=== PATIENT | male | born 1975 | race Caucasian/White ===

== ENCOUNTER → 2020-10-31 | Outpatient (CLI) | payer BC ==
--- NOTE | 2020-10-31 10:54 | FL ---
ESOPHOGRAM. HISTORY: Dysphagia Esophagram was performed per the air contrast technique. The patient swallowed barium and effervesce nt crystals without difficulty or delay. Esophageal peristalsis and motility appear to be within normal limits. There is no evidence for filling defect, mass or diverticulum. No hiatal hernia seen. Subsequently single contrast cervical esophagram was performed which fails demonstrate evidence for a spiration penetration or mass. There is posterior mass effect upon the cervical esophagus secondary t o spurring at the C6-7 level. IMPRESSION: There is posterior mass effect upon the cervical esophagus secondary to spurring at the C6-7 level. O therwise unremarkable study.
== END | disposition home or self-care (01) ==
LOC: RADUSWWP 09:42
PROVIDERS: ATTEND Otolaryngology
DX: K22.8 Other specified diseases of esophagus (principal)
CPT/HCPCS: 74220

== ENCOUNTER → 2023-06-22 | Outpatient (CLI) | payer BC ==
--- NOTE | 2023-06-22 21:10 | US ---
EXAMINATION TYPE: US extremity nonvasc mass RT DATE OF EXAM: 06/22/2023 COMPARISON: NONE CLINICAL INDICATION: Male, 47 years old with history of R22.40 LOCALIZED SWELLING, MASS AND LUMP, UNS PECIF; Pt states palpable lump right lateral/anterior lower leg x 1 year TECHNIQUE: Right lateral, lower leg FINDINGS: Solid, vascular lesion in area of pt's palpable lump= 2.6 x 1.2 x 3.2 cm/ small calcificat ions also visualized within IMPRESSION: 1. Solid vascular mass within the area of soft tissue palpable region of the calf. Consider additiona l workup with MRI with contrast.
== END | disposition home or self-care (01) ==
LOC: RADUSWWP 14:57
PROVIDERS: ATTEND Family Medicine
DX: R22.41 Localized swelling, mass and lump, right lower limb (principal)

== ENCOUNTER → 2023-07-02 | Outpatient (CLI) | payer BC ==
--- NOTE | 2023-07-07 09:12 | MR ---
EXAMINATION: MR tib fib RT wo/w con DATE OF EXAM: 07/02/2023 COMPARISON: Soft tissue ultrasound 06/22/2023 HISTORY: Vascular mass lateral side of right lower leg, abnormal US. TECHNIQUE: Multiplanar, multisequence images of the right tibia fibula were acquired without and with contrast. FINDINGS: BONES/MARROW: Normal bone marrow signal. SOFT TISSUES: Corresponding to the ultrasound findings within the right lower leg anterolateral subcu taneous fat, abutting the superficial myofascial plane of the anterior muscular compartment, there is a circumscribed 1.4 x 3.3 x 2.8 cm low T1/high T2 avidly enhancing solid mass. Myotendinous structures are normal. No anatomic variant. No bursal distention. No fluid collection. NEUROVASCULAR: Visualized neurovascular structures are normal. OTHER: Normal. No lymphadenopathy. IMPRESSION: Solid enhancing mass within the subcutaneous fat anterolateral right lower leg. Recommend biopsy. Dif ferential includes myxomatous tumors and sarcomatous tumors
== END | disposition home or self-care (01) ==
LOC: RADMRIMAIN 21:00
PROVIDERS: ATTEND Family Medicine
DX: R22.41 Localized swelling, mass and lump, right lower limb (principal)
CPT/HCPCS: 73720; A9585

== ENCOUNTER → 2023-11-22 | Day surgery (SDC) | payer BC ==
[2023-11-19 12:00] VITALS: BMI 25.7
[~2023-11-22] MED LIST: ACETAMINOPHEN TAB 325 MG TAB PO PRN; HYDROmorphone 0.5 MG/0.5 ML SYRINGE IVP PRN; KETAMINE HCL IN 0.9 % NACL 50 MG/5 ML SYRINGE ONE; KETOROLAC 15 MG/ML 1 ML VIAL IVP SCH; LIDOCAINE 1% INJ 10MG/ML (20 ML MDV) ONE; MIDAZOLAM 2 MG/2 ML VIAL ONE; NALOXONE 0.4 MG/ML 1 ML VIAL IV PRN; PROPOFOL 10 MG/ML 20 ML VIAL IV ONE; Pre Op ABX Message 1 EACH MISC MISCELLANE ONE; ceFAZolin 1 GM/50 ML BAG (PMX) ONE; fentaNYL (PF) 50 MCG/ML 2 ML AMP ONE
[2023-11-22] MEDS: ACETAMINOPHEN TAB 500 MG TAB PO PRN (08:05)
[2023-11-22] MEDS: ONDANSETRON 4 MG/2 ML VIAL IVP ONE (08:10)
[2023-11-22] MEDS: DEXAMETHASONE SOD PHOSPHATE 4 MG/ML 1 ML VIAL IV ONE (08:10)
[2023-11-22] MEDS: HEPARIN SODIUM,PORCINE 5,000 UNIT/ML 1 ML VIAL SQ PRN (08:11)
[2023-11-22] MEDS: LACTATED RINGERS 1,000 ML IV SCH (08:14)
[2023-11-22 08:30] VITALS: RESP 16; TEMP 97.9
--- NOTE | 2023-11-22 08:42 | P.GSHP ---
History of Present Illness H&P Date: 11/22/23 Chief Complaint: Right leg mass 48-year-old male here today for lesion removal right lateral platt. Growing in size over the last 5 years. Recent imaging shows it to be about 3 x 2 cm. Mild soreness. Past Medical History Past Medical History: Hypertension Additional Past Medical History / Comment(s): Chron's. History of Any Multi-Drug Resistant Organisms: None Reported Additional Past Surgical History / Comment(s): Colonoscopies. Past Anesthesia/Blood Transfusion Reactions: No Reported Reaction Smoking Status: Never smoker - Past Family History Father Family Medical History: No Reported History Medications and Allergies Home Medications Medication Instructions Recorded Confirmed Type Adalimumab [Humira(Cf) Pen] 40 mg SQ Q14D 11/19/23 11/19/23 History amLODIPine BESYLATE/BENAZEPRIL 1 cap PO QAM 11/19/23 11/19/23 History [amLODIPine BESYLATE/BENAZEPRIL 5-20 mg] Allergies Allergy/AdvReac Type Severity Reaction Status Date / Time No Known Allergies Allergy Verified 11/22/23 07:49 Surgical - Exam Vital Signs Temp Pulse Resp BP Pulse Ox 97.9 F 69 16 146/91 95 11/22/23 07:49 11/22/23 07:49 11/22/23 07:49 11/22/23 07:49 11/22/23 07:49 Physical exam: General: Well-developed, well-nourished HEENT: Normocephalic, sclerae nonicteric Abdomen: Nontender, nondistended Extremities: No edema, right lower lateral leg mass 3 x 2 cm Neuro: Alert and oriented Assessment and Plan (1) Mass of right lower leg Narrative/Plan: Will proceed with surgical excision at this time. Current Visit: Yes Status: Acute Code(s): R22.41 - LOCALIZED SWELLING, MASS AND LUMP, RIGHT LOWER LIMB SNOMED Code(s): 108221557
[2023-11-22] MEDS: LIDOCAINE 1%-EPI 1:100,000 20 ML VIAL SQ ONE ×3 (09:07→09:14)
[2023-11-22] MEDS: SODIUM CHLORIDE 0.9% 50 ML with ceFAZolin 2,000 MG IV ONE (09:15)
--- NOTE | 2023-11-22 09:44 | P.OP ---
Date of Procedure: 11/22/23 Procedure(s) Performed: PREOPERATIVE DIAGNOSIS: Right leg mass POSTOPERATIVE DIAGNOSIS: Same PROCEDURE: Excision right leg mass with intermediate closure SURGEON: Magdalena EBL: 5 cc ANESTHESIA: Sedation and local COMPLICATIONS: None OPERATIVE PROCEDURE: Patient kept supine for the procedure. Right lateral lower leg prepped and draped sterilely. Longitudinal incision made overlying the palpable mass after localizing with lidocaine. Subcutaneous tissue superficially divided using electrocautery. Underlying palpable mass superior to the fascia was then fully excised using both blunt dissection and cautery. This measured 3.2 x 2.2 cm. This had a smooth border. No extensions from the mass were seen. This was sent to pathology. Subcutaneous tissue was closed using interrupted 3-0 Vicryl sutures. Skin closed using a running 4-0 Monocryl subcuticular stitch. Length of intermediate closure 4 cm. Skin glue and sterile dressings applied. DISPOSITION: Stable to recovery room
[2023-11-22 10:03] VITALS: BP 128/82; PULSE 65
== END ==
LOC: OR 07:21
PROVIDERS: ATTEND Surgery
DX: R22.41 Localized swelling, mass and lump, right lower limb (principal); I10 Essential (primary) hypertension; Z79.899 Other long term (current) drug therapy
CPT/HCPCS: 27632; 88305; 88342; 88341; J2250; J1644; J1100; J2405; J0690 ×2; J2001; J3010; J2704

== ENCOUNTER 2024-04-04 06:30 | Inpatient (IN) | payer BC ==
--- NOTE | 2024-04-04 06:59 | ED ---
Abdominal Pain HPI - General Chief Complaint: Abdominal Pain Stated Complaint: Fever,Chills, ND Time Seen by Provider: 04/04/24 06:37 Source: patient, RN notes reviewed Mode of arrival: ambulatory Limitations: no limitations - History of Present Illness Initial Comments: This is a 48-year-old male who presents to the emergency department for abdominal pain, nausea, vomiting, and diarrhea. Symptoms started 2 days ago. States that the diarrhea is essentially constant. He has already gone over 10 times since being awake for a couple of hours. He has had a couple episodes of vomiting, but largely feels nauseous due to abdominal discomfort and diarrhea. He has pain largely in his lower abdomen. Reports a history of Crohn's disease, but states that that does not cause him pain whenever he develops flareups and that involves blood in his stool. States that this does not feel like a flareup and he does not have any blood in his stool at this time. Currently on Humira for Crohn's disease management. Reports associated fevers and chills as well. Denies any sick contacts or new medications. MD Complaint: abdominal pain - Related Data Home Medications Medication Instructions Recorded Confirmed amLODIPine BESYLATE/BENAZEPRIL 1 cap PO DAILY 11/19/23 04/04/24 [amLODIPine BESYLATE/BENAZEPRIL 5-20 mg] Omeprazole Magnesium [PriLOSEC OTC] 20 mg PO DAILY 04/04/24 04/04/24 Allergies Allergy/AdvReac Type Severity Reaction Status Date / Time No Known Allergies Allergy Verified 04/04/24 12:18 Review of Systems ROS Statement: Those systems with pertinent positive or pertinent negative responses have been documented in the HPI. ROS Other: All systems not noted in ROS Statement are negative. Past Medical History Past Medical History: Hypertension Additional Past Medical History / Comment(s): Chron's. History of Any Multi-Drug Resistant Organisms: None Reported Additional Past Surgical History / Comment(s): Colonoscopies. Past Anesthesia/Blood Transfusion Reactions: No Reported Reaction Past Psychological History: No Psychological Hx Reported Smoking Status: Never smoker - Past Family History Father Family Medical History: No Reported History General Exam Limitations: no limitations General appearance: alert, in no apparent distress Head exam: Present: atraumatic, normocephalic, normal inspection Respiratory exam: Present: normal lung sounds bilaterally. Absent: respiratory distress, wheezes, rales, rhonchi, stridor Cardiovascular Exam: Present: regular rate, normal rhythm, normal heart sounds. Absent: systolic murmur, diastolic murmur, rubs, gallop, clicks GI/Abdominal exam: Present: soft, tenderness (diffuse), normal bowel sounds. A bsent: distended Neurological exam: Present: alert, oriented X3, CN II-XII intact Psychiatric exam: Present: normal affect, normal mood Skin exam: Present: warm, dry, intact, normal color. Absent: rash Course Vital Signs 04/04/24 04/04/24 04/04/24 06:31 08:10 09:00 Temperature 98.7 F 98 F Pulse Rate 105 H 85 88 Respiratory 20 18 16 Rate Blood Pressure 126/82 138/83 131/94 O2 Sat by Pulse 99 98 94 L Oximetry 04/04/24 11:28 Temperature Pulse Rate 102 H Respiratory 18 Rate Blood Pressure 137/92 O2 Sat by Pulse 95 Oximetry Medical Decision Making - Medical Decision Making This is a 48-year-old male who presents to the emergency department for abdominal pain and diarrhea. Was pt. sent in by a medical professional or institution? @ -No Did you speak to anyone other than the patient for history? @ -No Did you review nursing and triage notes? @ -Yes, and I agree, it is accurate with regards to the patient's symptoms. Were old charts reviewed? @ -No Differential Diagnosis? @ -Differential Abdominal Pain Men: Appendicitis, cholecystitis, diverticulosis, ischemic bowel, pancreatitis, hepatitis, UTI, gastroenteritis, AAA, incarcerated hernia, bowel obstruction, constipation, inflammatory bowel, hepatitis, peptic ulcer disease, splenic infarction, perforated viscus, testicular torsion, this is not meant to be an all-inclusive list EKG interpreted by me (3pts min.)? @ -EKG interpreted by me demonstrating the following: Sinus rhythm. Ventricular rate 86 bpm, NJ interval 124 ms, QRS duration 100 ms, QTc 413 ms. X-rays interpreted by me (1pt min.)? @ -Not obtained CT interpreted by me (1pt min.)? @ -CT scan of the abdomen and pelvis obtained. My interpretation identifies bowel wall thickening around the cecum. U/S interpreted by me (1pt. min.)? @ -Not obtained What testing was considered but not performed? (CT, X-rays, U/S, labs)? Why? @ -None What meds were considered but not given? Why? @ -None Did you discuss the management of the patient with other professionals? @ -Yes, Dr. Wade, who accepts the patient for admission Did you reconcile home meds? @ -Yes Was smoking cessation discussed for >3mins.? @ -No Was critical care preformed (if so, how long)? @ -No Were there social determinants of health that impacted care today? How? (Homelessness, low income, unemployed, alcoholism, drug addiction, transportation, low edu. Level, literacy, decrease access to med. care, residential, rehab)? @ -No Was there de-escalation of care discussed even if they declined? (Discuss DNR or withdrawal of care, Hospice)? @ -No What co-morbidities impacted this encounter? (DM, HTN, Smoking, COPD, CAD, Cancer, CVA, Hep., AIDS, mental health diagnosis, sleep apnea, morbid obesity)? @ -Crohn's disease Was patient admitted / discharged? @ -Admitted. Lab work demonstrates signs of dehydration with a creatinine of 1.78 and eGFR of 45. He also has an elevation in metamyelocytes. Lab work was otherwise unremarkable. COVID, influenza, and RSV testing negative. He was given a total of 2 L of IV fluids due to the fairly prominent dehydration. Morphine administered for discomfort with improvement in symptoms. CT scan of the abdomen and pelvis obtained demonstrating nonspecific infectious or inflammatory colitis with moderate to severe inflammation consistent with UC or Crohn's disease. No abscess or free air was identified. Findings concerning for Crohn's colitis flareup. Discussed with the patient the options of admission versus discharge home. Patient was still relatively uncomfortable and given the level of his dehydration, opted to stay for further management. Patient started on Solu-Medrol 30 mg twice daily for Crohn's colitis flareup. Maintenance IV fluids initiated as well. Consult placed for GI. Case discussed with ED attending, Dr. Moore. Undiagnosed new problem with uncertain prognosis? @ -None Drug Therapy requiring intensive monitoring for toxicity (Heparin, Nitro, Insulin, Cardizem)? @ -None Were any procedures done? @ -None Diagnosis/symptom? @ -Crohn's colitis flareup Acute, or Chronic, or Acute on Chronic? @ -Acute on chronic Uncomplicated (without systemic symptoms) or Complicated (systemic symptoms)? @ -Complicated Side effects of treatment? @ -None Exacerbation, Progression, or Severe Exacerbation] @ -Severe exacerbation Poses a threat to life or bodily function? @ -Yes, can lead to complications such as bowel obstruction or perforation, which can become life-threatening. - Lab Data Result diagrams: 04/04/24 07:03 04/04/24 07:03 Lab Results 04/04/24 04/04/24 04/04/24 Range/Units 07:03 07:03 07:03 WBC 7.7 (3.8-10.6) k/uL RBC 4.95 (4.30-5.90) m/uL Hgb 15.5 (13.0-17.5) gm/dL Hct 44.7 (39.0-53.0) % MCV 90.2 (80.0-100.0) fL MCH 31.3 (25.0-35.0) pg MCHC 34.7 (31.0-37.0) g/dL RDW 12.5 (11.5-15.5) % Plt Count 196 (150-450) k/uL MPV 7.8 Neutrophils % (Manual) 79 % Band Neuts % (Manual) 10 % Lymphocytes % (Manual) 5 % Monocytes % (Manual) 6 % Metamyelocytes % 2 % Neutrophils # (Manual) 6.80 (1.3-7.7) k/uL Lymphocytes # (Manual) 0.39 L (1.0-4.8) k/uL Monocytes # (Manual) 0.46 (0-1.0) k/uL Metamyelocytes # (Man) 0.15 H (0) k/uL Nucleated RBCs 0 (0-0) /100 WBC Manual Slide Review Performed Toxic Vacuolation Present RBC Morphology Normal ESR (0-15) mm/Hr Sodium 137 (137-145) mmol/L Potassium 3.5 (3.5-5.1) mmol/L Chloride 103 (98-107) mmol/L Carbon Dioxide 22 (22-30) mmol/L Anion Gap 12 mmol/L BUN 21 H (9-20) mg/dL Creatinine 1.78 H (0.66-1.25) mg/dL Est GFR (CKD-EPI)AfAm 52 (>60 ml/min/1.73 sqM) Est GFR (CKD-EPI)NonAf 45 (>60 ml/min/1.73 sqM) Glucose 110 H (74-99) mg/dL Plasma Lactic Acid Geraldo (0.7-2.0) mmol/L Calcium 9.1 (8.4-10.2) mg/dL Phosphorus 2.8 (2.5-4.5) mg/dL Magnesium 1.6 (1.6-2.3) mg/dL Total Bilirubin 1.1 (0.2-1.3) mg/dL AST 65 H (17-59) U/L ALT 90 H (4-49) U/L Alkaline Phosphatase 93 (38-126) U/L C-Reactive Protein (<1.0) mg/dL Total Protein 6.9 (6.3-8.2) g/dL Albumin 4.0 (3.5-5.0) g/dL Amylase 46 (30-110) U/L Lipase 78 (23-300) U/L Urine Color Yellow Urine Appearance Clear (Clear) Urine pH 6.0 (5.0-8.0) Ur Specific South Range 1.050 H (1.001-1.035) Urine Protein 1+ H (Negative) Urine Glucose (UA) Negative (Negative) Urine Ketones 1+ H (Negative) Urine Blood Large H (Negative) Urine Nitrite Negative (Negative) Urine Bilirubin Negative (Negative) Urine Urobilinogen <2.0 (<2.0) mg/dL Ur Leukocyte Esterase Negative (Negative) Urine RBC >182 H (0-5) /hpf Urine WBC 6 H (0-5) /hpf Ur Squamous Epith Cells 1 (0-4) /hpf Urine Bacteria Rare H (None) /hpf Urine Mucus Rare H (None) /hpf Urine Yeast (Budding) Few H (None) /hpf Influenza Type A (PCR) (Not Detectd) Influenza Type B (PCR) (Not Detectd) RSV (PCR) (Not Detectd) SARS-CoV-2 (PCR) (Not Detectd) 04/04/24 04/04/24 04/04/24 Range/Units 07:03 07:03 07:03 WBC (3.8-10.6) k/uL RBC (4.30-5.90) m/uL Hgb (13.0-17.5) gm/dL Hct (39.0-53.0) % MCV (80.0-100.0) fL MCH (25.0-35.0) pg MCHC (31.0-37.0) g/dL RDW (11.5-15.5) % Plt Count (150-450) k/uL MPV Neutrophils % (Manual) % Band Neuts % (Manual) % Lymphocytes % (Manual) % Monocytes % (Manual) % Metamyelocytes % % Neutrophils # (Manual) (1.3-7.7) k/uL Lymphocytes # (Manual) (1.0-4.8) k/uL Monocytes # (Manual) (0-1.0) k/uL Metamyelocytes # (Man) (0) k/uL Nucleated RBCs (0-0) /100 WBC Manual Slide Review Toxic Vacuolation RBC Morphology ESR 46 H (0-15) mm/Hr Sodium (137-145) mmol/L Potassium (3.5-5.1) mmol/L Chloride (98-107) mmol/L Carbon Dioxide (22-30) mmol/L Anion Gap mmol/L BUN (9-20) mg/dL Creatinine (0.66-1.25) mg/dL Est GFR (CKD-EPI)AfAm (>60 ml/min/1.73 sqM) Est GFR (CKD-EPI)NonAf (>60 ml/min/1.73 sqM) Glucose (74-99) mg/dL Plasma Lactic Acid Geraldo 1.9 (0.7-2.0) mmol/L Calcium (8.4-10.2) mg/dL Phosphorus (2.5-4.5) mg/dL Magnesium (1.6-2.3) mg/dL Total Bilirubin (0.2-1.3) mg/dL AST (17-59) U/L ALT (4-49) U/L Alkaline Phosphatase (38-126) U/L C-Reactive Protein (<1.0) mg/dL Total Protein (6.3-8.2) g/dL Albumin (3.5-5.0) g/dL Amylase (30-110) U/L Lipase (23-300) U/L Urine Color Urine Appearance (Clear) Urine pH (5.0-8.0) Ur Specific [place] Range (1.001-1.035) Urine Protein (Negative) Urine Glucose (UA) (Negative) Urine Ketones (Negative) Urine Blood (Negative) Urine Nitrite (Negative) Urine Bilirubin (Negative) Urine Urobilinogen (<2.0) mg/dL Ur Leukocyte Esterase (Negative) Urine RBC (0-5) /hpf Urine WBC (0-5) /hpf Ur Squamous Epith Cells (0-4) /hpf Urine Bacteria (None) /hpf Urine Mucus (None) /hpf Urine Yeast (Budding) (None) /hpf Influenza Type A (PCR) Not Detected (Not Detectd) Influenza Type B (PCR) Not Detected (Not Detectd) RSV (PCR) Not Detected (Not Detectd) SARS-CoV-2 (PCR) Not Detected (Not Detectd) 04/04/24 Range/Units 07:03 WBC (3.8-10.6) k/uL RBC (4.30-5.90) m/uL Hgb (13.0-17.5) gm/dL Hct (39.0-53.0) % MCV (80.0-100.0) fL MCH (25.0-35.0) pg MCHC (31.0-37.0) g/dL RDW (11.5-15.5) % Plt Count (150-450) k/uL MPV Neutrophils % (Manual) % Band Neuts % (Manual) % Lymphocytes % (Manual) % Monocytes % (Manual) % Metamyelocytes % % Neutrophils # (Manual) (1.3-7.7) k/uL Lymphocytes # (Manual) (1.0-4.8) k/uL Monocytes # (Manual) (0-1.0) k/uL Metamyelocytes # (Man) (0) k/uL Nucleated RBCs (0-0) /100 WBC Manual Slide Review Toxic Vacuolation RBC Morphology ESR (0-15) mm/Hr Sodium (137-145) mmol/L Potassium (3.5-5.1) mmol/L Chloride (98-107) mmol/L Carbon Dioxide (22-30) mmol/L Anion Gap mmol/L BUN (9-20) mg/dL Creatinine (0.66-1.25) mg/dL Est GFR (CKD-EPI)AfAm (>60 ml/min/1.73 sqM) Est GFR (CKD-EPI)NonAf (>60 ml/min/1.73 sqM) Glucose (74-99) mg/dL Plasma Lactic Acid Geraldo (0.7-2.0) mmol/L Calcium (8.4-10.2) mg/dL Phosphorus (2.5-4.5) mg/dL Magnesium (1.6-2.3) mg/dL Total Bilirubin (0.2-1.3) mg/dL AST (17-59) U/L ALT (4-49) U/L Alkaline Phosphatase (38-126) U/L C-Reactive Protein 25.6 H (<1.0) mg/dL Total Protein (6.3-8.2) g/dL Albumin (3.5-5.0) g/dL Amylase (30-110) U/L Lipase (23-300) U/L Urine Color Urine Appearance (Clear) Urine pH (5.0-8.0) Ur Specific [place] Range (1.001-1.035) Urine Protein (Negative) Urine Glucose (UA) (Negative) Urine Ketones (Negative) Urine Blood (Negative) Urine Nitrite (Negative) Urine Bilirubin (Negative) Urine Urobilinogen (<2.0) mg/dL Ur Leukocyte Esterase (Negative) Urine RBC (0-5) /hpf Urine WBC (0-5) /hpf Ur Squamous Epith Cells (0-4) /hpf Urine Bacteria (None) /hpf Urine Mucus (None) /hpf Urine Yeast (Budding) (None) /hpf Influenza Type A (PCR) (Not Detectd) Influenza Type B (PCR) (Not Detectd) RSV (PCR) (Not Detectd) SARS-CoV-2 (PCR) (Not Detectd) - Radiology Data Radiology results: report reviewed, image reviewed Disposition Clinical Impression: Exacerbation of Crohn's disease, Crohn's colitis, ANTONETTE (acute kidney injury) Disposition: ADMITTED IP TO THIS HOSP
[2024-04-04] MEDS: DIPHENOX-ATROP 2.5-0.025 MG 1 EACH TAB PO STA (07:12)
[2024-04-04] MEDS: MORPHINE SULFATE 4 MG/ML SYRINGE IVP STA (07:13)
[2024-04-04] MEDS: ONDANSETRON 4 MG/2 ML VIAL IVP STA (07:18)
[2024-04-04 07:21] LABS: HCT 44.7 % (39.0-53.0); HGB 15.5 gm/dL (13.0-17.5); MCH 31.3 pg (25.0-35.0); MCHC 34.7 g/dL (31.0-37.0); MCV 90.2 fL (80.0-100.0); Mean Platelet Volume 7.8; Platelet Count 196 k/uL (150-450); RBC 4.95 m/uL (4.30-5.90); RDW 12.5 % (11.5-15.5); WBC 7.7 k/uL (3.8-10.6)
[2024-04-04] MEDS: PANTOPRAZOLE 40 MG/10 ML VIAL IVP STA (07:21)
[2024-04-04] MEDS: SODIUM CHLORIDE 0.9% 1,000 ML IV STA ×2 (07:22→08:03)
[2024-04-04 07:30] LABS: ALT 90 U/L (4-49); AST 65 U/L (17-59); African American GFR (CKD) 52 (>60 ml/min/1.73 sqM); Alkaline Phosphatase 93 U/L (38-126); Amylase 46 U/L (30-110); Anion Gap 12 mmol/L; Blood Urea Nitrogen 21 mg/dL (9-20); Calcium 9.1 mg/dL (8.4-10.2); Carbon Dioxide 22 mmol/L (22-30); Chloride 103 mmol/L (98-107); Glucose 110 mg/dL (74-99); Lipase 78 U/L (23-300); Magnesium 1.6 mg/dL (1.6-2.3); Non-African American GFR(CKD) 45 (>60 ml/min/1.73 sqM); Phosphorus 2.8 mg/dL (2.5-4.5); Potassium 3.5 mmol/L (3.5-5.1); Sodium 137 mmol/L (137-145); Total Bilirubin 1.1 mg/dL (0.2-1.3); Total Protein 6.9 g/dL (6.3-8.2)
[2024-04-04 08:37] LABS: Band Neutrophils % 10 %; Lymphocytes # (M) 0.39 k/uL (1.0-4.8); Metamyelocytes # (M) 0.15 k/uL (0); Metamyelocytes % 2 %; Monocytes # (M) 0.46 k/uL (0-1.0); Neutrophils % (M) 79 %; Nucleated Red Blood Cells 0 /100 WBC (0-0); Total Cells Counted 200
[2024-04-04 08:38] LABS: RBC Morphology Normal
[2024-04-04 08:39] LABS: Toxic Vacuolation Present
--- NOTE | 2024-04-04 08:50 | CT ---
EXAMINATION TYPE: CT abdomen pelvis w con DATE OF EXAM: 04/04/2024 COMPARISON: None HISTORY: 48-year-old male Abdominal pain, acute, nonlocalized TECHNIQUE: Contiguous axial scanning of the abdomen and pelvis following administration of 100 ml Iso ella 300 IV contrast. Delayed images through the kidneys and coronal/sagittal reconstructions perform ed. CT DLP: 735.9 mGycm Automated exposure control for dose reduction was used. FINDINGS: Heart normal size with trace anterior pericardial fluid. There is some patchy densities in the lower lungs. No pleural effusion. Tiny 5 mm cyst posterior right liver lobe. Liver enlarged at 20.3 cm. There may be underlying fatty infiltration. Portal venous system is patent . No biliary ductal dilatation. Gallbladder, adrenal glands, kidneys, spleen, and pancreas within normal limits. Prominent fluid-filled small bowel loops within the right side of the abdomen, liquid stool scattered throughout the colon. No abnormal small bowel dilatation. There is a nondilated appendix in the right lower quadrant. Some prominent right lower quadrant mesen teric lymph nodes measuring up to 8 mm and are probably reactive. There is moderate to severe circumferential wall thickening along the cecum and ascending colon and m ild to moderate along the transverse colon. Additional moderate edematous wall thickening and inflammation involving 40 cm span of the terminal i leum. There is moderate surrounding inflammation and some mild reactive fluid along the right paracol ic gutter. No abscess formation or free air. There is proximal sigmoid diverticulosis. No convincing findings of acute diverticulitis. Prominent p ericolonic vessels are seen. Bladder partially distended. Prostate gland is borderline enlarged at 4.1 cm. Pelvic phleboliths. No abnormal fluid collection in the pelvis or pelvic lymphadenopathy. Bones: Moderate degenerative disc disease L4-L5. Mild degenerative disc disease lower thoracic spine. Facet arthropathy lower lumbar spine. IMPRESSION: 1. Nonspecific infectious or inflammatory colitis particularly centered along the cecum, ascending co kelli, and to a lesser degree transverse colon. Moderate to severe inflammation. Contiguous terminal il eitis (also with moderate to severe inflammation). Consider inflammatory bowel disease such as UC or Crohn's disease. No abscess or free air. 2. Reactive mild free fluid tracking along the right paracolic gutter. 3. Hepatomegaly at 20.3 cm. There may be some mild hepatic steatosis. 4. Some mild patchy densities of the lower lungs probably areas of dependent atelectasis. If any acti ve respiratory signs/symptoms, follow-up radiograph.
[2024-04-04] MEDS ORDERED: ACETAMINOPHEN TAB 325 MG TAB PO PRN (09:33)
[2024-04-04] MEDS ORDERED: NALOXONE 0.4 MG/ML 1 ML VIAL IV PRN (09:33)
[2024-04-04 09:54] LABS: Appearance,Urine Clear (Clear); Bacteria,Urine Rare /hpf; Bilirubin,Urine Negative (Negative); Blood,Urine Large (Negative); Budding Yeast,Urine Few /hpf; Color,Urine Yellow; Glucose,Urine (UA) Negative (Negative); Ketones,Urine 1+ (Negative); Leukocyte Esterase,Urine Negative (Negative); Mucus,Urine Rare /hpf; Nitrite,Urine Negative (Negative); Protein,Urine 1+ (Negative); RBC,Urine >182 /hpf (0-5); Squamous Epithelial Cell,Urine 1 /hpf (0-4); Urobilinogen,Urine <2.0 mg/dL (<2.0); WBC,Urine 6 /hpf (0-5)
[2024-04-04] MEDS: methylPREDNISolone SOD SUCCI 40 MG/ML 1 ML VIAL IV SCH ×2 (09:57→15:00)
[2024-04-04] MEDS: SODIUM CHLORIDE 0.9% 1,000 ML IV SCH (09:58)
[2024-04-04 11:51] LABS: Glucose,Whole Blood 100 mg/dL (70-110)
[2024-04-04] MEDS: KETOROLAC 15 MG/ML 1 ML VIAL IVP PRN (12:34)
--- NOTE | 2024-04-04 13:24 | P.CONS ---
History of Present Illness - Reason for Consult Consult date: 04/04/24 Crohn's flareup Requesting physician: Estela Panda - Chief Complaint Abdominal pain, diarrhea - History of Present Illness This a pleasant 48-year-old male who presented to the emergency department with complaints of diarrhea and abdominal pain for last 2 to 3 days duration associated with nausea. He has a past medical history including Crohn's disease diagnosed at about 20 years old and follows with gastroenterology from [place] [employer] administrative [employer]. He is currently on Humira. He cannot remember the last time he has had a flareup. States that his Crohn's affects the large intestine with ulcers. He states that he was having diarrhea up to 20 times or more a day nonbloody. States that he had diarrhea 8 times today from 3:00 till about 7:00 AM. He was given Lomotil and he has not had any bowel movement since then. States he is having lower abdominal pain, associated with nausea but no vomiting. He did state that he was having fever Wednesday and Wednesday with a max temp of 101 at home. Denies any sick contacts. He is afebrile here in the hospital. C. difficile ordered however patient has not been able to have a bowel movement since given Lomotil. Labs overall unremarkable, mild elevation in AST and ALT at 65 and 90 respectively. Reports last colonoscopy within the last 3 to 4 months she states was normal with no active disease. Review of Systems REVIEW OF SYSTEMS: CARDIOPULMONARY: No chest pain or shortness of breath. Gastrointestinal: Abdominal pain. No nausea or vomiting. No hematemesis, coffee-ground emesis. Frequent diarrhea. No rectal bleeding, or melena. GENITOURINARY: No dysuria or hematuria. MUSCULOSKELETAL: Reports normal range of motion. SKIN: No rashes. No jaundice. ENDOCRINE: No chills, fevers. No excessive weight gain or loss. No polydipsia or polyuria. PSYCHIATRIC: Unremarkable. NEUROLOGY: No change in mental status. Denies dizziness, headache. ENT: Vision unremarkable. CONSTITUTIONAL: No recent weight loss. Fever chills and bodyaches. Past Medical History Past Medical History: GERD/Reflux, Hypertension Additional Past Medical History / Comment(s): Chron's diagnosed at 20 History of Any Multi-Drug Resistant Organisms: None Reported Additional Past Surgical History / Comment(s): Colonoscopies, fatty tumor removal Past Anesthesia/Blood Transfusion Reactions: No Reported Reaction Smoking Status: Never smoker - Past Family History Father Family Medical History: No Reported History Medications and Allergies Home Medications Medication Instructions Recorded Confirmed Type amLODIPine BESYLATE/BENAZEPRIL 1 cap PO DAILY 11/19/23 04/04/24 History [amLODIPine BESYLATE/BENAZEPRIL 5-20 mg] Omeprazole Magnesium [PriLOSEC OTC] 20 mg PO DAILY 04/04/24 04/04/24 History Allergies Allergy/AdvReac Type Severity Reaction Status Date / Time No Known Allergies Allergy Verified 04/04/24 12:18 Physical Exam Vitals: Vital Signs Temp Pulse Resp BP Pulse Ox 04/04/24 11:28 102 H 18 137/92 95 04/04/24 09:00 88 16 131/94 94 L 04/04/24 08:10 98 F 85 18 138/83 98 04/04/24 06:31 98.7 F 105 H 20 126/82 99 Intake and Output 04/03/24 04/04/24 04/04/24 22:59 06:59 14:59 Other: Weight 81.647 kg 81.647 kg General appearance: The patient is alert, oriented, appears in no acute distress. HET: Head is normocephalic and atraumatic. Conjunctiva pink. Sclera anicteric. Neck: Supple without lymphadenopathy. Trachea midline. Heart: Regular. Lungs: Equal expansion, normal respiratory effort. Abdomen: Soft, lower abdominal tenderness, nondistended. Skin: No rashes. No jaundice. Extremities: Normal skin color and turgor. No pedal edema. Neurological: No focal deficits. Alert and oriented x3. Results CBC & Chem 7: 04/04/24 07:03 04/04/24 07:03 Labs: Abnormal Lab Results - Last 24 Hours (Table) 04/04/24 04/04/24 04/04/24 Range/Units 07:03 07:03 07:03 Lymphocytes # (Manual) 0.39 L (1.0-4.8) k/uL Metamyelocytes # (Man) 0.15 H (0) k/uL BUN 21 H (9-20) mg/dL Creatinine 1.78 H (0.66-1.25) mg/dL Glucose 110 H (74-99) mg/dL AST 65 H (17-59) U/L ALT 90 H (4-49) U/L C-Reactive Protein (<1.0) mg/dL Ur Specific [place] 1.050 H (1.001-1.035) Urine Protein 1+ H (Negative) Urine Ketones 1+ H (Negative) Urine Blood Large H (Negative) Urine RBC >182 H (0-5) /hpf Urine WBC 6 H (0-5) /hpf Urine Bacteria Rare H (None) /hpf Urine Mucus Rare H (None) /hpf Urine Yeast (Budding) Few H (None) /hpf 04/04/24 Range/Units 07:03 Lymphocytes # (Manual) (1.0-4.8) k/uL Metamyelocytes # (Man) (0) k/uL BUN (9-20) mg/dL Creatinine (0.66-1.25) mg/dL Glucose (74-99) mg/dL AST (17-59) U/L ALT (4-49) U/L C-Reactive Protein 25.6 H (<1.0) mg/dL Ur Specific [place] (1.001-1.035) Urine Protein (Negative) Urine Ketones (Negative) Urine Blood (Negative) Urine RBC (0-5) /hpf Urine WBC (0-5) /hpf Urine Bacteria (None) /hpf Urine Mucus (None) /hpf Urine Yeast (Budding) (None) /hpf Comments: CT abdomen pelvis reports nonspecific infectious or inflammatory colitis part to the ocularly centered along the cecum, ascending colon and to a lesser degree transverse colon. Moderate to severe inflammation. Contagious terminal ileitis also with moderate to severe inflammation. Consider inflammatory bowel disease such as UC or Crohn's disease. No abscess or free air. Reactive mild free fluid tracking along the right paracolic gutter. Hepatomegaly at 20.3. There may be some mild hepatic steatosis. Some mild patchy densities of the lower lungs probably areas of dependent atelectasis if any active respiratory signs symptoms follow-up radiograph. Assessment and Plan (1) Crohn's disease Narrative/Plan: 48-year-old with longstanding history of controlled Crohn's disease on Humira presenting with abdominal pain nausea and frequent nonbloody diarrhea. CT abdomen pelvis shows nonspecific colitis with moderate to severe inflammation. Patient states it does not feel like a normal flareup like she has had in the past that usually symptomatic with bloody diarrhea. He states that he is not having any blood per rectum frequent diarrhea up to 20 times. Unclear if this is more of an infectious etiology or exacerbation. CRP and sed rate were obtained CRP is elevated at 25 sed rate currently pending. Unfortunately patient was given Lomotil, waiting patient to pass stool for C. difficile and stool cultures. Until then we will treat with IV antibiotics and steroids. Current Visit: Yes Status: Acute Code(s): K50.90 - CROHN'S DISEASE, UNSPECIFIED, WITHOUT COMPLICATIONS SNOMED Code(s): 40475566 (2) Diarrhea Current Visit: Yes Status: Acute Code(s): R19.7 - DIARRHEA, UNSPECIFIED SNOMED Code(s): 52457500 (3) Abdominal pain Current Visit: Yes Status: Acute Code(s): R10.9 - UNSPECIFIED ABDOMINAL PAIN SNOMED Code(s): 79006666 Plan: 1. Continue symptomatic and supportive care 2. Will discontinue IV steroids for now 3. Start Zosyn IV every 8 hours 3. Protonix 40 mg daily for GI prophylaxis 5. C. difficile and stool cultures ordered 6. CRP and sed rate ordered 7. Clear liquid diet 8. Further recommendations forthcoming based on clinical course 9. Hold antidiarrheals Thank you for this consultation, we will continue to follow Dr. Zulay Gonzalez I agree with the dictator's note, documented as a scribe by Rosalinda Bustillo.
[2024-04-04] MEDS: PIPERACILLIN-TAZOBACTAM 3.375 GM in SODIUM CHLORIDE 0.9% 100 ML IVPB SCH (14:57)
[2024-04-04] MEDS: MORPHINE SULFATE 4 MG/ML SYRINGE IV PRN (17:37)
[2024-04-05] MEDS: PANTOPRAZOLE 40 MG/10 ML VIAL IV SCH (08:21)
[2024-04-05] MEDS: amLODIPine 5 MG TAB PO SCH (08:22)
[2024-04-05] MEDS: ONDANSETRON 4 MG/2 ML VIAL IVP PRN (08:22)
[2024-04-05] MEDS: lisinopriL 20 MG TAB PO SCH (08:22)
--- NOTE | 2024-04-05 08:35 | P.HPIM ---
History of Present Illness H&P Date: 04/05/24 Chief Complaint: Abdominal pain This is a 48-year-old white male with known history of hypertension and Crohn's colitis who came in with significant abdominal pain and diarrhea over the last 3 to 4 days. No abnormal dietary intake. CT scan shows colitis. Appropriate consultations have been done he is kept comfortable with antidiarrheal and morphine. History of fever and chills. Review of Systems Constitutional: Denies chills, Denies fever Eyes: denies blurred vision, denies pain Ears, nose, mouth and throat: Denies headache, Denies sore throat Cardiovascular: Denies chest pain, Denies shortness of breath Respiratory: Reports as per HPI Gastrointestinal: Reports as per HPI, Reports abdominal pain, Reports diarrhea Past Medical History Past Medical History: Hypertension Additional Past Medical History / Comment(s): Chron's. History of Any Multi-Drug Resistant Organisms: None Reported Additional Past Surgical History / Comment(s): Colonoscopies. Past Anesthesia/Blood Transfusion Reactions: No Reported Reaction Past Psychological History: No Psychological Hx Reported Smoking Status: Never smoker - Past Family History Father Family Medical History: No Reported History Medications and Allergies Home Medications Medication Instructions Recorded Confirmed Type amLODIPine BESYLATE/BENAZEPRIL 1 cap PO DAILY 11/19/23 04/04/24 History [amLODIPine BESYLATE/BENAZEPRIL 5-20 mg] Omeprazole Magnesium [PriLOSEC OTC] 20 mg PO DAILY 04/04/24 04/04/24 History Allergies Allergy/AdvReac Type Severity Reaction Status Date / Time No Known Allergies Allergy Verified 04/04/24 12:18 Physical Exam Vitals: Vital Signs Temp Pulse Pulse Resp BP BP Pulse Ox 04/05/24 08:20 98.6 F 72 17 154/97 95 04/05/24 00:40 98.9 F 68 16 126/86 96 04/04/24 19:19 99.0 F 87 19 141/80 98 04/04/24 15:00 99.4 F 80 17 125/71 95 04/04/24 11:28 102 H 18 137/92 95 04/04/24 09:00 88 16 131/94 94 L Intake and Output 04/04/24 04/05/24 04/05/24 22:59 06:59 14:59 Intake Total 600 Balance 600 Intake: Intake, IV Titration 600 Amount Piperacillin-Tazobactam 3 100 .375 gm In Sodium Chloride 0.9% 100 ml @ 25 mls/hr IVPB Q8HR [facility] Rx# :[id number] Sodium Chloride 0.9% 1, 500 000 ml @ 100 mls/hr IV . Q10H [facility] Rx#:[id number] Other: # Voids 4 # Bowel Movements 2 - Constitutional General appearance: no acute distress - EENT Eyes: EOMI - Neck Neck: no lymphadenopathy - Respiratory Respiratory: bilateral: diminished - Cardiovascular Rhythm: regular Heart sounds: normal: S1, S2 - Gastrointestinal General gastrointestinal: hyperactive bowel sounds, tenderness - Integumentary Integumentary: no cellulitis - Psychiatric Psychiatric: A&O x's 3 Results CBC & Chem 7: 04/04/24 07:03 04/04/24 07:03 Labs: Abnormal Lab Results - Last 24 Hours (Table) 04/04/24 04/04/24 04/04/24 Range/Units 07:03 07:03 07:03 Lymphocytes # (Manual) 0.39 L (1.0-4.8) k/uL Metamyelocytes # (Man) 0.15 H (0) k/uL ESR 46 H (0-15) mm/Hr C-Reactive Protein (<1.0) mg/dL Ur Specific [place] 1.050 H (1.001-1.035) Urine Protein 1+ H (Negative) Urine Ketones 1+ H (Negative) Urine Blood Large H (Negative) Urine RBC >182 H (0-5) /hpf Urine WBC 6 H (0-5) /hpf Urine Bacteria Rare H (None) /hpf Urine Mucus Rare H (None) /hpf Urine Yeast (Budding) Few H (None) /hpf 04/04/24 Range/Units 07:03 Lymphocytes # (Manual) (1.0-4.8) k/uL Metamyelocytes # (Man) (0) k/uL ESR (0-15) mm/Hr C-Reactive Protein 25.6 H (<1.0) mg/dL Ur Specific [place] (1.001-1.035) Urine Protein (Negative) Urine Ketones (Negative) Urine Blood (Negative) Urine RBC (0-5) /hpf Urine WBC (0-5) /hpf Urine Bacteria (None) /hpf Urine Mucus (None) /hpf Urine Yeast (Budding) (None) /hpf Thrombosis Risk Factor Assmnt - Choose All That Apply Any of the Below Risk Factors Present?: Yes Each Factor Represents 1 point: Age 41-60 years Other Risk Factors: Yes Other congenital or acquired thrombophilia - If yes, enter type in comment: Yes Thrombosis Risk Factor Assessment Total Risk Factor Score: 1 Thrombosis Risk Factor Assessment Level: Low Risk Assessment and Plan (1) Hypertension Current Visit: Yes Status: Acute Code(s): I10 - ESSENTIAL (PRIMARY) HYPERTENSION SNOMED Code(s): 89019913 (2) Colitis Current Visit: Yes Status: Acute Code(s): K52.9 - NONINFECTIVE GASTROENTERITIS AND COLITIS, UNSPECIFIED SNOMED Code(s): 58848748 (3) Crohn's disease Current Visit: Yes Status: Acute Code(s): K50.90 - CROHN'S DISEASE, UNSPECIFIED, WITHOUT COMPLICATIONS SNOMED Code(s): 49411972 (4) Diarrhea Current Visit: Yes Status: Acute Code(s): R19.7 - DIARRHEA, UNSPECIFIED SNOMED Code(s): 85635609 Plan: Continue current regimen of antibiotic treatment. Check CBC and CMP in AM. The patient is full code. Appreciate multiple consultants input. See orders otherwise
[2024-04-05] MEDS ORDERED: NON FORMULARY DRUG (Omeprazole Magnesium [Prilosec Otc] 20 MG Tablet) PO SCH (09:00)
--- NOTE | 2024-04-05 12:00 | P.PN ---
Subjective Progress Note Date: 04/05/24 Principal diagnosis: Abdominal pain and diarrhea This a pleasant 48-year-old male who presented to the emergency department with complaints of diarrhea and abdominal pain for last 2 to 3 days duration associated with nausea. He has a past medical history including Crohn's disease diagnosed at about 20 years old and follows with gastroenterology from [place] [employer]. He is currently on Humira. He cannot remember the last time he has had a flareup. States that his Crohn's affects the large intestine with ulcers. He states that he was having diarrhea up to 20 times or more a day nonbloody. States that he had diarrhea 8 times today from 3:00 till about 7:00 AM. He was given Lomotil and he has not had any bowel movement since then. States he is having lower abdominal pain, associated with nausea but no vomiting. He did state that he was having fever Wednesday and Wednesday with a max temp of 101 at home. Denies any sick contacts. He is afebrile here in the hospital. C. difficile ordered however patient has not been able to have a bowel movement since given Lomotil. Labs overall unremarkable, mild elevation in AST and ALT at 65 and 90 respectively. Reports last colonoscopy within the last 3 to 4 months she states was normal with no active disease. 04/05/2024 Patient seen and examined today as a follow-up. States he had about 15 episodes of nonbloody diarrhea from yesterday evening through this morning. Lower abdominal cramping with nausea but no vomiting. Abdominal pain improved from yesterday. Had a very low-grade fever 99.4. C. difficile negative. CRP and sed rate elevated. No leukocytosis. Objective - Vital Signs Vital signs: Vital Signs Temp 98.6 F 04/05/24 08:20 Pulse 72 04/05/24 08:20 Resp 17 04/05/24 08:20 BP 154/97 04/05/24 08:20 Pulse Ox 95 04/05/24 08:20 FiO2 Intake & Output 04/04/24 04/05/24 04/05/24 18:59 06:59 18:59 Intake Total 600 Balance 600 Weight 81.647 kg Intake: Intake, IV Titration 600 Amount Piperacillin-Tazobactam 3 100 .375 gm In Sodium Chloride 0.9% 100 ml @ 25 mls/hr IVPB Q8HR [facility] Rx# :[id number] Sodium Chloride 0.9% 1, 500 000 ml @ 100 mls/hr IV . Q10H [facility] Rx#:[id number] Other: # Voids 4 # Bowel Movements 2 - Exam General appearance: The patient is alert, oriented, appears in no acute distress. HET: Head is normocephalic and atraumatic. Conjunctiva pink. Sclera anicteric. Neck: Supple without lymphadenopathy. Abdomen: Soft, mid and lower abdominal tenderness although improved, nondistended with bowel sounds. No guarding or rigidity. Extremities: Normal skin color and turgor. No pedal edema Skin: No rashes, no jaundice Neurological: No focal deficits. Alert and oriented. - Labs CBC & Chem 7: 04/04/24 07:03 04/04/24 07:03 Labs: Abnormal Lab Results - Last 24 Hours (Table) 04/04/24 04/04/24 04/04/24 Range/Units 07:03 07:03 07:03 ESR 46 H (0-15) mm/Hr C-Reactive Protein 25.6 H (<1.0) mg/dL Ur Specific [place] 1.050 H (1.001-1.035) Urine Protein 1+ H (Negative) Urine Ketones 1+ H (Negative) Urine Blood Large H (Negative) Urine RBC >182 H (0-5) /hpf Urine WBC 6 H (0-5) /hpf Urine Bacteria Rare H (None) /hpf Urine Mucus Rare H (None) /hpf Urine Yeast (Budding) Few H (None) /hpf Assessment and Plan (1) Crohn's disease Narrative/Plan: 48-year-old with longstanding history of controlled Crohn's disease on Humira presenting with abdominal pain nausea and frequent nonbloody diarrhea. CT abdomen pelvis shows nonspecific colitis with moderate to severe inflammation. Patient states it does not feel like a normal flareup like she has had in the past that usually symptomatic with bloody diarrhea. He states that he is not having any blood per rectum frequent diarrhea up to 20 times. Unclear if this is more of an infectious etiology or exacerbation. CRP and sed rate were obtained CRP is elevated at 25 sed rate currently pending. Unfortunately patient was given Lomotil, waiting patient to pass stool for C. difficile and stool cultures. Until then we will treat with IV antibiotics and steroids. Elevated CRP and sed rate likely more consistent with Crohn's flareup. Will resume steroids with oral prednisone 40 mg daily. 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 Current Visit: Yes Status: Acute Code(s): K50.90 - CROHN'S DISEASE, UNSPECIFIED, WITHOUT COMPLICATIONS SNOMED Code(s): 87363846 (2) Diarrhea Current Visit: Yes Status: Acute Code(s): R19.7 - DIARRHEA, UNSPECIFIED SNOMED Code(s): 65062048 (3) Abdominal pain Current Visit: Yes Status: Acute Code(s): R10.9 - UNSPECIFIED ABDOMINAL PAIN SNOMED Code(s): 13320415 Plan: 1. Continue symptomatic and supportive care 2. Resume steroids, Solu-Medrol 20 mg IV every 8 hours 3. Zosyn IV every 8 hours 3. Protonix 40 mg daily for GI prophylaxis 5. C. difficile and stool cultures ordered. Stool cultures pending 6. CRP and sed rate ordered and reviewed 7. Increased to low fiber diet 8. Further recommendations forthcoming based on clinical course 9. Hold antidiarrheals. Will add Questran Thank you for this consultation, we will continue to follow Dr. Zulay Gonzalez I agree with the dictator's note, documented as a scribe by Rosalinda Bustillo.
[2024-04-05] MEDS: predniSONE 20 MG TAB PO SCH (13:02)
[2024-04-05] MEDS: CHOLESTYRAMINE (WITH SUGAR) 4 GM PACKET PO SCH (13:02)
[2024-04-05] MEDS: methylPREDNISolone SOD SUCCI 40 MG/ML 1 ML VIAL IV SCH (17:42)
[2024-04-05] MEDS: HYDROcodone/APAP 5-325MG 1 EACH TAB PO PRN (23:18)
[2024-04-06 07:06] LABS: HCT 37.9 % (39.0-53.0); HGB 13.1 gm/dL (13.0-17.5); MCH 31.5 pg (25.0-35.0); MCHC 34.7 g/dL (31.0-37.0); MCV 90.9 fL (80.0-100.0); Mean Platelet Volume 8.3; Platelet Count 218 k/uL (150-450); RBC 4.17 m/uL (4.30-5.90); RDW 12.3 % (11.5-15.5); WBC 6.5 k/uL (3.8-10.6)
[2024-04-06 07:29] LABS: ALT 45 U/L (4-49); AST 26 U/L (17-59); African American GFR (CKD) >90 (>60 ml/min/1.73 sqM); Albumin 3.3 g/dL (3.5-5.0); Alkaline Phosphatase 58 U/L (38-126); Anion Gap 8 mmol/L; Blood Urea Nitrogen 14 mg/dL (9-20); Carbon Dioxide 24 mmol/L (22-30); Chloride 107 mmol/L (98-107); Glucose 113 mg/dL (74-99); Non-African American GFR(CKD) >90 (>60 ml/min/1.73 sqM); Sodium 139 mmol/L (137-145); Total Bilirubin 0.6 mg/dL (0.2-1.3)
[2024-04-06 07:47] LABS: Calcium 8.7 mg/dL (8.4-10.2)
--- NOTE | 2024-04-06 08:47 | P.PN ---
Subjective Progress Note Date: 04/06/24 This is a 48-year-old white male with known history of hypertension and Crohn's colitis who came in with significant abdominal pain and diarrhea over the last 3 to 4 days. Patient reports his diarrhea stopped yesterday afternoon and he had a formed stool this morning. He remains on IV steroids and IV antibiotics. Patient reports his abdominal pain is much improved today. He is tolerating diet. Vitals are stable. Objective - Vital Signs Vital signs: Vital Signs Temp 98.3 F 04/06/24 08:22 Pulse 69 04/06/24 08:22 Resp 16 04/06/24 08:22 BP 143/90 04/06/24 08:22 Pulse Ox 96 04/06/24 08:22 FiO2 Intake & Output 04/05/24 04/06/24 04/06/24 18:59 06:59 18:59 Other: # Voids 3 1 # Bowel Movements 5 - Constitutional General appearance: Present: cooperative, no acute distress - EENT Eyes: Present: PERRLA - Neck Neck: Present: normal ROM. Absent: lymphadenopathy, rigidity - Respiratory Respiratory: bilateral: CTA - Cardiovascular Rhythm: regular Heart sounds: normal: S1, S2 - Gastrointestinal General gastrointestinal: Present: soft. Absent: tenderness - Integumentary Integumentary: Present: normal, normal turgor - Psychiatric Psychiatric: Present: A&O x's 3, appropriate affect, intact judgment & insight - Labs CBC & Chem 7: 04/06/24 06:49 04/06/24 06:49 Labs: Abnormal Lab Results - Last 24 Hours (Table) 04/06/24 04/06/24 Range/Units 06:49 06:49 RBC 4.17 L (4.30-5.90) m/uL Hct 37.9 L (39.0-53.0) % Glucose 113 H (74-99) mg/dL Total Protein 6.0 L (6.3-8.2) g/dL Albumin 3.3 L (3.5-5.0) g/dL Assessment and Plan (1) Crohn's colitis Current Visit: Yes Status: Acute Code(s): K50.10 - CROHN'S DISEASE OF LARGE INTESTINE WITHOUT COMPLICATIONS SNOMED Code(s): 00869850 (2) Hypertension Current Visit: Yes Status: Acute Code(s): I10 - ESSENTIAL (PRIMARY) HYPERTENSION SNOMED Code(s): 18855852 Plan: Appreciate GI's input. Patient symptoms continue to improve. Patient seen and evaluated by nurse practitioner, physician in agreement with plan
--- NOTE | 2024-04-06 15:37 | P.PN ---
Subjective Progress Note Date: 04/06/24 Principal diagnosis: Abdominal pain and diarrhea This a pleasant 48-year-old male who presented to the emergency department with complaints of diarrhea and abdominal pain for last 2 to 3 days duration associated with nausea. 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 He is currently on Humira. He cannot remember the last time he has had a flareup. States that his Crohn's affects the large intestine with ulcers. He states that he was having diarrhea up to 20 times or more a day nonbloody. States that he had diarrhea 8 times today from 3:00 till about 7:00 AM. He was given Lomotil and he has not had any bowel movement since then. States he is having lower abdominal pain, associated with nausea but no vomiting. He did state that he was having fever Wednesday and Wednesday with a max temp of 101 at home. Denies any sick contacts. He is afebrile here in the hospital. C. difficile ordered however patient has not been able to have a bowel movement since given Lomotil. Labs overall unremarkable, mild elevation in AST and ALT at 65 and 90 respectively. Reports last colonoscopy within the last 3 to 4 months she states was normal with no active disease. 04/05/2024 Patient seen and examined today as a follow-up. States he had about 15 episodes of nonbloody diarrhea from yesterday evening through this morning. Lower abdominal cramping with nausea but no vomiting. Abdominal pain improved from yesterday. Had a very low-grade fever 99.4. C. difficile negative. CRP and sed rate elevated. No leukocytosis. 04/06/2024 Patient seen and examined today as a follow-up. States that he is feeling better. Only had a couple episodes of loose stools yesterday after we had last seen him. Then he started just passing gas. Ate a full breakfast this morning does admit to some cramping after and a bowel movement but states it was more soft than liquid. Denies any fevers or chills, no bodyaches. He has been afebrile. Stool culture did come back positive with Campylobacter Jejuni. Objective - Vital Signs Vital signs: Vital Signs Temp 98.3 F 04/06/24 08:22 Pulse 69 04/06/24 08:22 Resp 16 04/06/24 08:22 BP 143/90 04/06/24 08:22 Pulse Ox 96 04/06/24 08:22 FiO2 Intake & Output 04/05/24 04/06/24 04/06/24 18:59 06:59 18:59 Other: # Voids 3 1 # Bowel Movements 5 - Exam General appearance: The patient is alert, oriented, appears in no acute distress. HET: Head is normocephalic and atraumatic. Conjunctiva pink. Sclera anicteric. Neck: Supple without lymphadenopathy. Abdomen: Soft, nontender, nondistended with bowel sounds. No guarding or rigidity. Extremities: Normal skin color and turgor. No pedal edema Skin: No rashes, no jaundice Neurological: No focal deficits. Alert and oriented. - Labs CBC & Chem 7: 04/06/24 06:49 04/06/24 06:49 Labs: Abnormal Lab Results - Last 24 Hours (Table) 04/06/24 04/06/24 Range/Units 06:49 06:49 RBC 4.17 L (4.30-5.90) m/uL Hct 37.9 L (39.0-53.0) % Glucose 113 H (74-99) mg/dL Total Protein 6.0 L (6.3-8.2) g/dL Albumin 3.3 L (3.5-5.0) g/dL Assessment and Plan (1) Crohn's disease Narrative/Plan: 48-year-old with longstanding history of controlled Crohn's disease on Humira presenting with abdominal pain nausea and frequent nonbloody diarrhea. CT abdomen pelvis shows nonspecific colitis with moderate to severe inflammation. Patient states it does not feel like a normal flareup like she has had in the past that usually symptomatic with bloody diarrhea. He states that he is not having any blood per rectum frequent diarrhea up to 20 times. Unclear if this is more of an infectious etiology or exacerbation. CRP and sed rate were obtained CRP is elevated at 25 sed rate currently pending. Unfortunately patient was given Lomotil, waiting patient to pass stool for C. difficile and stool cultures. Until then we will treat with IV antibiotics and steroids. Elevated CRP and sed rate likely more consistent with Crohn's flareup. Will resume steroids with oral prednisone 40 mg daily. Patient will need to follow- up with his digital music instructor discharge. Current Visit: Yes Status: Acute Code(s): K50.90 - CROHN'S DISEASE, UNSPECIFIED, WITHOUT COMPLICATIONS SNOMED Code(s): 80245413 (2) Diarrhea Narrative/Plan: Positive stool culture Campylobacter jejuni, which is common bacteria associated with food poisoning often associated with chicken and animal feces. Due to patient's Crohn's will continue with antibiotics however will change to azithromycin. Current Visit: Yes Status: Acute Code(s): R19.7 - DIARRHEA, UNSPECIFIED SNOMED Code(s): 26179382 (3) Abdominal pain Current Visit: Yes Status: Acute Code(s): R10.9 - UNSPECIFIED ABDOMINAL PAIN SNOMED Code(s): 44153093 Plan: 1. Continue symptomatic and supportive care 2. Will transition to prednisone 40 mg daily starting tomorrow morning 3. Discontinue Zosyn and add azithromycin 500 mg p.o. daily 4. Protonix 40 mg daily for GI prophylaxis 5. C. difficile and stool cultures ordered. Stool culture positive for Campylobacter jejuni 6. CRP and sed rate ordered and reviewed 7. Increased to low fiber diet 8. May continue with Questran 9. Hold antidiarrheals 10. Plan for discharge tomorrow with continued prednisone and antibiotics Thank you for this consultation, we will continue to follow Dr. Zulay Gonzalez I agree with the dictator's note, documented as a scribe by Rosalinda Bustillo.
[2024-04-07 07:53] VITALS: BP 151/92; PULSE 57; RESP 20; TEMP 98
--- NOTE | 2024-04-07 08:26 | P.DS ---
Providers Date of admission: 04/04/24 09:39 Attending physician: Román Wade Consults: 04/04/24 09:33 Consult Physician Urgent Consulting Provider: Ana Gonzalez Consult Reason/Comments: Crohn's flare up Do you want consulting provider notified?: Yes Primary care physician: Román Wade - Discharge Diagnosis(es) (1) Hypertension Current Visit: Yes Status: Acute (2) Colitis Current Visit: Yes Status: Acute (3) Crohn's disease Current Visit: Yes Status: Acute (4) Diarrhea Current Visit: Yes Status: Acute Hospital Course: The patient is here essentially admitted for colitis. The patient was started on appropriate antibiotic treatment with steroids and inflammation calm down. He was tolerating diet and discharge with minimal pain. Tolerating diet with no difficulties he will return to work the following Wednesday and follow-up with me in about 7 days Plan - Discharge Summary New Discharge Prescriptions: New Azithromycin [Zithromax] 500 mg PO DAILY 4 Days #4 tab predniSONE 0 mg PO DIRECTED #70 tab No Action amLODIPine BESYLATE/BENAZEPRIL [amLODIPine BESYLATE/BENAZEPRIL 5-20 mg] 1 cap PO DAILY Omeprazole Magnesium [PriLOSEC OTC] 20 mg PO DAILY Discharge Medication List amLODIPine BESYLATE/BENAZEPRIL [amLODIPine BESYLATE/BENAZEPRIL 5-20 mg] 1 cap PO DAILY 11/19/23 [History] Omeprazole Magnesium [PriLOSEC OTC] 20 mg PO DAILY 04/04/24 [History] predniSONE 0 mg PO DIRECTED #70 tab 04/06/24 [Rx] Azithromycin [Zithromax] 500 mg PO DAILY 4 Days #4 tab 04/07/24 [Rx] Follow up Appointment(s)/Referral(s): Román Wade MD [Primary Care Provider] - 1 Week Discharge Disposition: HOME SELF-CARE
[2024-04-07 08:34] LABS: ALT 39 U/L (10-49); AST 15 U/L (14-35); Albumin 3.5 g/dL (3.8-4.9); Albumin/Globulin Ratio 1.46 Ratio (1.60-3.17); Alkaline Phosphatase 59 U/L (41-126); BUN/Creat Ratio 11.91 Ratio (12.00-20.00); Blood Urea Nitrogen 13.1 mg/dL (9.0-27.0); Calcium 8.8 mg/dL (8.7-10.3); Carbon Dioxide 24.9 mmol/L (21.6-31.8); Chloride 106 mmol/L (96-109); Globulin 2.4 g/dL (1.6-3.3); Glucose 121 mg/dL (70-110); Potassium 4.3 mmol/L (3.5-5.5); Sodium 139 mmol/L (135-145); Total Bilirubin 0.2 mg/dL (0.3-1.2); Total Protein 5.9 g/dL (6.2-8.2)
[2024-04-07 08:45] LABS: HCT 37.7 % (39.6-50.0); HGB 12.7 g/dL (13.0-17.0); MCHC 33.7 g/dL (32.0-37.0); MCV 89.1 FL (80.0-97.0); Mean Platelet Volume 10.3 FL (9.5-12.2); NRBC Per 100 WBC 0 X 10*3/uL (0.00-0.01); Platelet Count 237 X 10*3/uL (140-440); RBC 4.23 X 10*6/uL (4.40-5.60); RDW 11.9 % (11.5-14.5); WBC 8.39 X 10*3/uL (4.50-10.00)
[2024-04-07] MEDS: AZITHROMYCIN 500 MG TAB PO SCH (09:50)
[2024-04-07] MEDS: predniSONE 20 MG TAB PO SCH (09:50)
--- NOTE | 2024-04-07 10:19 | P.PN ---
Subjective Progress Note Date: 04/07/24 Principal diagnosis: Abdominal pain and diarrhea Patient seen and examined today as a follow-up. States he is doing much better. Had a bowel movement this morning that was soft but not watery. Abdominal cramping and pain improving. Leukocytosis improved. He has been asymptomatic. Stool cultures did come back positive with Campylobacter jejuni and patient was started on azithromycin Due to history of Crohn's colitis. Objective - Vital Signs Vital signs: Vital Signs Temp 97.9 F 04/07/24 00:48 Pulse 60 04/07/24 00:48 Resp 17 04/07/24 00:48 BP 132/79 04/07/24 00:48 Pulse Ox 97 04/07/24 00:48 FiO2 Intake & Output 04/06/24 04/06/24 04/07/24 06:59 18:59 06:59 Other: # Voids 1 1 1 - Exam General appearance: The patient is alert, oriented, appears in no acute distress. HET: Head is normocephalic and atraumatic. Conjunctiva pink. Sclera anicteric. Neck: Supple without lymphadenopathy. Abdomen: Soft, nontender, nondistended with bowel sounds. No guarding or rigidity. Extremities: Normal skin color and turgor. No pedal edema Skin: No rashes, no jaundice Neurological: No focal deficits. Alert and oriented. - Labs CBC & Chem 7: 04/07/24 03:05 04/07/24 03:05 Labs: Abnormal Lab Results - Last 24 Hours (Table) 04/06/24 04/06/24 Range/Units 06:49 06:49 RBC 4.17 L (4.30-5.90) m/uL Hct 37.9 L (39.0-53.0) % Glucose 113 H (74-99) mg/dL Total Protein 6.0 L (6.3-8.2) g/dL Albumin 3.3 L (3.5-5.0) g/dL Microbiology - Last 24 Hours (Table) 04/04/24 13:27 Stool Culture - Preliminary Stool Campylobacter jejuni Assessment and Plan (1) Crohn's disease Narrative/Plan: 48-year-old with longstanding history of controlled Crohn's disease on Humira presenting with abdominal pain nausea and frequent nonbloody diarrhea. CT abdomen pelvis shows nonspecific colitis with moderate to severe inflammation. Patient states it does not feel like a normal flareup like she has had in the past that usually symptomatic with bloody diarrhea. He states that he is not having any blood per rectum frequent diarrhea up to 20 times. Unclear if this is more of an infectious etiology or exacerbation. CRP and sed rate were obtain ed CRP is elevated at 25 sed rate currently pending. Unfortunately patient was given Lomotil, waiting patient to pass stool for C. difficile and stool cultures. Until then we will treat with IV antibiotics and steroids. Elevated CRP and sed rate likely more consistent with Crohn's flareup. Will resume steroids with oral prednisone 40 mg daily. 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 Current Visit: Yes Status: Acute Code(s): K50.90 - CROHN'S DISEASE, UNSPECIFIED, WITHOUT COMPLICATIONS SNOMED Code(s): 03653736 (2) Diarrhea Narrative/Plan: Positive stool culture Campylobacter jejuni, which is common bacteria associated with food poisoning often associated with chicken and animal feces. Due to patient's Crohn's will continue with antibiotics however will change to azithromycin. Current Visit: Yes Status: Acute Code(s): R19.7 - DIARRHEA, UNSPECIFIED SNOMED Code(s): 33845321 (3) Abdominal pain Current Visit: Yes Status: Acute Code(s): R10.9 - UNSPECIFIED ABDOMINAL PAIN SNOMED Code(s): 50323716 Plan: 1. Continue symptomatic and supportive care 2. Continue prednisone 40 mg daily, taper by 10 mg weekly. This was discussed with patient 3. Continue azithromycin 500 mg daily for total 5 days 4. Protonix 40 mg daily for GI prophylaxis 5. C. difficile and stool cultures ordered. Stool culture positive for Campylobacter jejuni 6. CRP and sed rate ordered and reviewed 7. Continue low fiber diet 8. May discontinue Questran Thank you for this consultation, patient is cleared from gastroenterology for discharge. Prednisone and azithromycin prescription sent to patient's pharmacy. He was instructed to follow-up with his package reinspector in a couple weeks. Dr. Zulay Gonzalez I agree with the dictator's note, documented as a scribe by Rosalinda Bustillo.
== END 2024-04-07 10:33 | disposition home or self-care (01) | DRG 387 ==
LOC: EC 06:30 → 4SSUR 09:39 → 1SOBS 11:09 → 5NMEDONC 04-06 18:19
PROVIDERS: ADMIT Family Medicine; ATTEND Family Medicine
DX: K50.10 Crohn's disease of large intestine without complications (principal); I10 Essential (primary) hypertension; R79.82 Elevated C-reactive protein (CRP); Z79.620 Long term (current) use of immunosuppressive biologic
CPT/HCPCS: 36415; 74177; 80053; 81001; 82150; 83605; 83690; 83735; 84100; 85025; 85027; 85652; 86140; 87045; 87046; 87324; 87636; 93005; 96361; 96374; 96375; 99285